=== PATIENT | female | born 1980 | race African-American/Black ===

== ENCOUNTER 2024-04-18 09:20 | Inpatient (IN) | payer MEDICAID, OTHER ==
[~2024-04-18] VITALS: Ht 165.1 cm; Wt 64.0 kg
[2024-04-18 09:24] VITALS: O2SAT 97
[2024-04-18] MEDS: IOHEXOL-350 100 ML BOTTLE ONE (09:38)
[2024-04-18 09:56] LABS: BASOPHILS % 1.5 % (0.0-2.0); EOSINOPHILS % 8.3 % (0.0-5.0); HEMOGLOBIN. 13.7 g/dL (12.0-16.0); LYMPHOCYTES % 41.6 % (20.0-50.0); MEAN CORPUSCULAR HGB CONC 34.3 g/dL (31.0-37.0); MEAN CORPUSCULAR VOLUME 90.2 fL (81.0-99.0); MEAN PLATELET VOLUME 7.5 fl (7.4-10.4); MONOCYTES % 9.6 % (2.0-8.0); PLATELET 270 x1000/uL (130-400); RED BLOOD CELL COUNT 4.44 mill/uL (4.2-5.4); RED CELL DISTRIBUTION WIDTH 13.8 % (11.6-14.6); WHITE BLOOD COUNT 3.5 x1000/uL (4.5-11.0)
[2024-04-18 10:03] LABS: CARBON DIOXIDE 27 mEq/L (21-32); CHLORIDE 105 mEq/L (98-107); POTASSIUM 3.9 mEq/L (3.5-5.1); SODIUM 136 mEq/L (136-145)
[2024-04-18 10:04] LABS: CALCIUM 8.8 mg/dL (8.7-10.4)
[2024-04-18 10:08] LABS: PROTHROMBIN TIME 11.6 sec (9.6-11.0)
[2024-04-18 10:09] LABS: GLUCOSE 92 mg/dL (70-105); UREA NITROGEN BLOOD 7 mg/dL (9-23)
[2024-04-18 11:05] LABS: ETHANOL BLOOD < 10 mg/dL (<10); TROPONIN I HIGH SENSITIVITY < 4 ng/L (3.0-34)
[2024-04-18 11:46] LABS: CLARITY URINE CLEAR (CLEAR); COLOR URINE YELLOW (YELLOW); GLUCOSE URINE NEGATIVE (NEGATIVE); KETONES URINE NEGATIVE (NEGATIVE); LEUKOCYTE ESTERASE URINE NEGATIVE (NEGATIVE); NITRITE URINE NEGATIVE (NEGATIVE); OCCULT BLOOD URINE TRACE (NEGATIVE); PH URINE 7.5 (4.5-8.0); PROTEIN URINE NEGATIVE (NEGATIVE); UROBILINOGEN URINE 0.2 E.U./dL (0.2-1.0)
[2024-04-18 11:57] LABS: SQUAMOUS EPITHELIAL CELL URINE 2+ /lpf (RARE/1+)
[2024-04-18 11:58] LABS: BACTERIA URINE TRACE; RBC URINE 0-2 /hpf (0-2)
[2024-04-18 11:59] LABS: WBC URINE 0-2 /hpf (0-2)
[2024-04-18 12:05] LABS: *AMPHETAMINES SCREEN URINE NEGATIVE (NEGATIVE)
[2024-04-18 12:06] LABS: *BARBITURATES SCREEN URINE NEGATIVE (NEGATIVE); *BENZODIAZEPINES SCREEN URINE NEGATIVE (NEGATIVE); *COCAINE SCREEN URINE NEGATIVE (NEGATIVE); CANNABINOID URINE SCREEN NEGATIVE (NEGATIVE); ECSTASY MDMA SCREEN URINE NEGATIVE (NEGATIVE); METHADONE URINE SCREEN NEGATIVE (NEGATIVE); OPIATES URINE SCREEN NEGATIVE (NEGATIVE); PHENCYCLIDINE URINE SCREEN NEGATIVE (NEGATIVE)
[2024-04-18] MEDS: ASPIRIN 325MG EC TABLET PO ONE (12:51)
[2024-04-18] MEDS ORDERED: NITROGLYCERIN 0.4MG TABLET SL SL PRN (13:00)
[2024-04-18] MEDS ORDERED: MAGNESIUM/ALUMINUM HYDROXIDE/SIMETHICONE 30ML UDC PO PRN (13:00)
[2024-04-18] MEDS ORDERED: GUAIFENESIN 200MG/10ML SUGAR FREE UDC PO PRN (13:00)
[2024-04-18] MEDS ORDERED: CLONIDINE 0.1MG TABLET PO PRN (13:00)
[2024-04-18] MEDS ORDERED: DOCUSATE SODIUM 100MG CAPSULE PO PRN (13:00)
[2024-04-18] MEDS ORDERED: ONDANSETRON HCL 4MG/2ML INJ IV PRN (13:00)
[2024-04-18] MEDS ORDERED: IPRATROPIUM/ALBUTEROL 0.5-3(2.5)MG/3ML NEB NEB PRN (13:00)
[2024-04-18] MEDS ORDERED: ACETAMINOPHEN 325MG TABLET PO PRN ×2 (13:00)
[2024-04-18 14:22] LABS: IRON 157 ug/dL (50-170)
[2024-04-18 14:23] LABS: TRIGLYCERIDE 105 mg/dL (0-150)
[2024-04-18 14:24] LABS: LDL CHOLESTEROL 113 mg/dL (5-100)
[2024-04-18 14:25] LABS: CHOLESTEROL 173 mg/dL (<200); HDL CHOLESTEROL 55 mg/dL (>65); TOTAL IRON BINDING CAPACITY 279 ug/dl (250-425)
[2024-04-18] MEDS: ENOXAPARIN 40MG/0.4ML SYR SUBCUT SCH (14:26)
[2024-04-18 14:29] LABS: T4 FREE 0.96 ng/dL (0.89-1.76); THYROID STIMULATING HORMONE 1.31 uIU/mL (0.55-4.78)
[2024-04-18 14:30] LABS: FOLIC ACID (FOLATE) SERUM > 20.00 ng/mL (>5.38); VITAMIN B12 SERUM 410 pg/mL (211-911)
[2024-04-18 16:45] VITALS: BP 144/91; PULSE 90; RESP 20; TEMP 98.6
[2024-04-18] MEDS ORDERED: FAMOTIDINE 20MG TABLET PO SCH (21:00)
[2024-04-18] MEDS ORDERED: ZOLPIDEM TARTRATE 5MG TABLET PO PRN (21:00)
[2024-04-19] MEDS ORDERED: ASPIRIN 81MG EC TABLET PO SCH (09:00)
== END 2024-04-18 17:37 | disposition left against medical advice (07) | DRG 93 ==
LOC: ER 09:20 → EDBEDREQTM 11:29 → EDBEDREQ 11:29 → EDBEDREQSVC 11:29 → 5WST 12:24 → EDBEDREQ 12:45
PROVIDERS: ADMIT Internal Medicine; ATTEND Internal Medicine
DX: R29.810 Facial weakness (principal); Z53.29 Procedure and treatment not carried out because of patient's decision for other reasons; Z98.2 Presence of cerebrospinal fluid drainage device
CPT/HCPCS: 36415; 70496; 70498; 71045; 80048; 80061; 80305; 80320; 81003; 82607; 82746; 83036; 83540; 83550; 84439; 84443; 84484; 85025; 93005; 99291; J1650; Q9967; G0480